=== PATIENT | female | born 2000 | race Caucasian/White ===

== ENCOUNTER 2019-08-03 14:02 | Emergency (ER) | payer OTHER ==
[~2019-08-03] VITALS: Ht 165.1 cm; Wt 73.5 kg
[2019-08-03 14:18] VITALS: BP 105/63; Ht 165.1 cm; Wt 73.5 kg
== END 2019-08-03 15:48 | disposition home or self-care (01) ==
LOC: ED 14:02
DX: S52.502A Unspecified fracture of the lower end of left radius, initial encounter for closed fracture (principal); S50.12XA Contusion of left forearm, initial encounter; W22.11XA Striking against or struck by driver side automobile airbag, initial encounter; Y93.I9 Activity, other involving external motion; Y92.488 Other paved roadways as the place of occurrence of the external cause; Y99.8 Other external cause status
CPT/HCPCS: A4570